=== PATIENT | female | born 1975 | race Caucasian/White ===

== ENCOUNTER → 2018-05-19 | Outpatient (CLI) | payer OTHER ==
[~2018-05-19] MED LIST: LEVO1TBD PO; METH10TA13 PO
[2018-05-19 10:46] LABS: BASOPHILS # (AUTO) 0.02 x10^3/uL (0-0.1); BASOPHILS % (AUTO) 0 % (0-1); EOSINOPHILS # (AUTO) 0.04 x10^3/uL (0-0.4); EOSINOPHILS % (AUTO) 1 % (1-7); LYMPHOCYTES # (AUTO) 1.83 x10^3/uL (1-3.4); LYMPHOCYTES % (AUTO) 22 % (22-44); MD NO; MEAN CORPUSCULAR HEMOGLOBIN 25.9 pg (27.0-34.8); MEAN CORPUSCULAR VOLUME 78.6 fL (80-100); MEAN PLATELET VOLUME 8.6 fL (7.4-10.4); MONOCYTES # (AUTO) 0.37 x10^3/uL (0.2-0.8); MONOCYTES % (AUTO) 4 % (2-9); NEUTROPHILS # (AUTO) 6.25 x10^3/uL (1.8-6.8); NEUTROPHILS % (AUTO) 73 % (42-75); PLATELET COUNT 371 x10^3/uL (130-400); RED BLOOD COUNT 5.62 x10^6/uL (3.82-5.3)
[2018-05-19 10:56] LABS: ALBUMIN 3.8 g/dL (3.4-5.0); CALCIUM 9.1 mg/dL (8.5-10.1); CHLORIDE 108 mmol/L (98-107)
[2018-05-19 11:26] LABS: % IRON SATURATION 10 % (20-55); ALANINE AMINOTRANSFERASE 151 U/L (12-78); ALKALINE PHOSPHATASE 95 U/L (45-117); ANION GAP 6 mmol/L (5-15); BILIRUBIN,TOTAL 0.6 mg/dL (0.2-1.0); CHOL/HDL RATIO 3.9; CHOLESTEROL, TOTAL 150 mg/dL (140-239); CREATININE 0.81 mg/dL (0.55-1.02); HDL CHOL % 25 % (28-40); HDL CHOLESTEROL (DIRECT) 38 mg/dL (40-60); IRON LEVEL 49 mcg/dL (50-170); LDL CHOLESTEROL,CALCULATED 79 mg/dL (54-169); LDL/HDL RATIO 2.1 (0.5-3.0); TOTAL IRON BINDING CAPACITY 511 mcg/dL (250-450); TOTAL PROTEIN 8.6 g/dL (6.4-8.2); TRANSFERRIN 389 mg/dL (200-360); TRIGLYCERIDES 166 mg/dL (50-200); VLDL CHOLESTEROL 33 mg/dL (0-25)
[2018-05-19 11:27] LABS: FOLATE LEVEL > 20.0 ng/mL (3.1-17.5)
== END | disposition home or self-care (01) ==
LOC: STAR 09:16
PROVIDERS: ATTEND Thoracic Surgery (Cardiothoracic Vascular Surgery)
DX: Z01.818 Encounter for other preprocedural examination (principal)
CPT/HCPCS: 36415; 71046; 80053; 80061; 82306; 82607; 82728; 82746; 83540; 83550; 83970; 84134; 84425; 84466; 85025; 93005

== ENCOUNTER 2018-05-25 08:43 | Inpatient (IN) | payer OTHER ==
[~2018-05-25] VITALS: Ht 165.1 cm; Wt 117.0 kg
[~2018-05-25 08:43] MED LIST changes: +BUPIVACAINE/PF-EPI 0.5% 1:200K ONE; +SUGAMMADEX 200 MG/2 ML IVPush ONE
[2018-05-25] MEDS ORDERED: LACTATED RINGERS 1,000 ML IV SCH (09:17)
[2018-05-25] MEDS ORDERED: MIDAZOLAM 1 MG/ML, 2ML ONE (09:26)
[2018-05-25] MEDS ORDERED: FENTANYL PF 250 MCG/5ML ONE (09:26)
[2018-05-25] MEDS ORDERED: SCOPOLAMINE PATCH, 1.5MG PATCH.TD72 TD ONE (09:30)
[2018-05-25] MEDS ORDERED: ACETAMINOPHEN 1,000 MG/100 ML IV IVPB ONE (09:30)
[2018-05-25 09:41] VITALS: BP 135/81
[2018-05-25] MEDS ORDERED: ACETAMINOPHEN 100 ML IVPB ONE (10:00)
[2018-05-25] MEDS ORDERED: PROPOFOL 10 MG/ML, 20ML ONE (11:19)
[2018-05-25] MEDS ORDERED: ONDANSETRON 2MG/ML, 2ML ONE (11:19)
[2018-05-25] MEDS ORDERED: CEFAZOLIN 1,000 MG ONE (11:19)
[2018-05-25] MEDS ORDERED: SUCCINYLCHOLINE 20 MG/ML, 10ML ONE (11:19)
[2018-05-25] MEDS ORDERED: DEXAMETHASONE 4 MG/ML, 1ML ONE (11:19)
[2018-05-25] MEDS ORDERED: ROCURONIUM 10MG/ML,5ML ONE (11:19)
[2018-05-25] MEDS ORDERED: METOCLOPRAMIDE 5 MG/ML, 2ML ONE (11:19)
[2018-05-25] MEDS ORDERED: LABETALOL 5MG/ML, 20ML IV PRN (11:30)
[2018-05-25] MEDS ORDERED: MIDAZOLAM 1 MG/ML, 2ML IV PRN (11:30)
[2018-05-25] MEDS ORDERED: ONDANSETRON 2MG/ML, 2ML IV PRN (11:30)
[2018-05-25] MEDS ORDERED: ALBUTEROL/IPRATROPIUM 2.5MG/0.5MG, 3 ML NPPB PRN (11:30)
[2018-05-25] MEDS ORDERED: MEPERIDINE/PF 25MG/0.5ML IVPush PRN (11:30)
[2018-05-25] MEDS ORDERED: hydrALAzine 20 MG/ML, 1ML IV PRN (11:30)
[2018-05-25] MEDS ORDERED: PROMETHAZINE 25 MG/ML, 1ML IV PRN (11:30)
[2018-05-25] MEDS ORDERED: SUGAMMADEX 200 MG/2 ML IVPush ONE (11:37)
[2018-05-25] MEDS: LACTATED RINGERS 1,000 ML IV SCH ×2 (11:41→18:08)
[2018-05-25] MEDS ORDERED: FENTANYL PF 100 MCG/2ML ONE ×2 (11:43→12:05)
[2018-05-25] MEDS ORDERED: OXYcodone 5 MG/5 ML ORAL.SOL UDC ONE (11:43)
[2018-05-25] MEDS ORDERED: HYDROmorphone 1 MG/ML, 1ML ONE ×2 (11:43→12:05)
[2018-05-25] MEDS: FENTANYL PF 100 MCG/2ML IV PRN ×3 (11:45→12:08)
[2018-05-25] MEDS: HYDROmorphone 2 MG/ML, 1ML IVPush PRN ×5 (11:50→12:22)
[2018-05-25] MEDS ORDERED: DIPHENHYDRAMINE 25 MG CAPSULE PO PRN (12:00)
[2018-05-25] MEDS ORDERED: FAMOTIDINE 20 MG/2 ML IVPush SCH (12:00)
[2018-05-25] MEDS ORDERED: DIPHENHYDRAMINE 50 MG/ML, 1ML IV PRN (12:00)
[2018-05-25] MEDS ORDERED: LORazepam 2 MG/ML, 1ML IV PRN (12:00)
[2018-05-25] MEDS ORDERED: morphine SULFATE 10 MG/ML, 1ML IVPush PRN (12:00)
[2018-05-25] MEDS ORDERED: PHENOL THROAT SPRAY BOTTLE MM PRN (12:00)
[2018-05-25] MEDS ORDERED: ONDANSETRON 2MG/ML, 2ML IVPush PRN (12:00)
[2018-05-25] MEDS ORDERED: ENALAPRILAT 1.25 MG/ML, 2ML IV PRN (12:00)
[2018-05-25] MEDS ORDERED: hydrALAzine 20 MG/ML, 1ML IVPush PRN (12:00)
[2018-05-25 13:49] VITALS: BP 144/85
[2018-05-25] MEDS: HYDROcodone/APAP 7.5-325MG/15ML UDC PO PRN ×4 (14:06→23:15)
[2018-05-25 19:01] VITALS: BP 118/61
[2018-05-25] MEDS ORDERED: FAMOTIDINE 20 MG TABLET ONE (20:56)
[2018-05-25] MEDS ORDERED: FAMOTIDINE 40 MG/5 ML ORAL SUSP PO SCH (21:00)
[2018-05-26 00:27] VITALS: BP 127/75
[2018-05-26] MEDS: LACTATED RINGERS 1,000 ML IV SCH ×2 (01:16→09:09)
[2018-05-26] MEDS: HYDROcodone/APAP 7.5-325MG/15ML UDC PO PRN ×3 (03:14→12:02)
[2018-05-26 03:57] VITALS: BP 116/65
[2018-05-26 05:43] LABS: BASOPHILS # (AUTO) 0.02 x10^3/uL (0-0.1); BASOPHILS % (AUTO) 0 % (0-1); EOSINOPHILS # (AUTO) 0.11 x10^3/uL (0-0.4); EOSINOPHILS % (AUTO) 1 % (1-7); LYMPHOCYTES # (AUTO) 1.74 x10^3/uL (1-3.4); LYMPHOCYTES % (AUTO) 21 % (22-44); MD NO; MEAN CORPUSCULAR HEMOGLOBIN 26.2 pg (27.0-34.8); MEAN CORPUSCULAR HGB CONC 33.4 g/dL (32.4-35.8); MEAN CORPUSCULAR VOLUME 78.4 fL (80-100); MEAN PLATELET VOLUME 9.1 fL (7.4-10.4); MONOCYTES # (AUTO) 0.71 x10^3/uL (0.2-0.8); MONOCYTES % (AUTO) 8 % (2-9); NEUTROPHILS # (AUTO) 5.88 x10^3/uL (1.8-6.8); NEUTROPHILS % (AUTO) 70 % (42-75); PLATELET COUNT 280 x10^3/uL (130-400); RED BLOOD COUNT 4.69 x10^6/uL (3.82-5.3); RED CELL DISTRIBUTION WIDTH 15.7 % (9.6-15.2)
[2018-05-26 05:51] LABS: ALBUMIN 3.1 g/dL (3.4-5.0); ANION GAP 7 mmol/L (5-15); CALCIUM 8.5 mg/dL (8.5-10.1); CHLORIDE 108 mmol/L (98-107)
[2018-05-26 05:52] LABS: CREATININE 0.73 mg/dL (0.55-1.02)
[2018-05-26] MEDS ORDERED: FAMOTIDINE 40 MG/5 ML ORAL SUSP PO SCH (09:00)
[2018-05-26 09:40] VITALS: BP 143/80
[2018-05-26] MEDS ORDERED: KETOROLAC 30 MG/1 ML IVPush PRN (11:00)
[2018-05-26] MEDS ORDERED: HYDR473S45 PO (12:07)
== END 2018-05-26 14:03 | disposition home or self-care (01) | DRG 621 ==
LOC: ORIP 08:43 → 4NOR 12:40 → DCLOUNGE 05-26 13:48
PROVIDERS: ADMIT Thoracic Surgery (Cardiothoracic Vascular Surgery); ATTEND Thoracic Surgery (Cardiothoracic Vascular Surgery)
PROC: 0DB64Z3 Excision of Stomach, Percutaneous Endoscopic Approach, Vertical (ICD-10-PCS; principal; 2018-05-25 11:00)
DX: E66.01 Morbid (severe) obesity due to excess calories (principal); E11.9 Type 2 diabetes mellitus without complications; E78.00 Pure hypercholesterolemia, unspecified; G89.29 Other chronic pain; F32.9 Major depressive disorder, single episode, unspecified; Z68.41 Body mass index [BMI] 40.0-44.9, adult; Z82.3 Family history of stroke; Z82.61 Family history of arthritis; Z82.49 Family history of ischemic heart disease and other diseases of the circulatory system
CPT/HCPCS: 36415; 80048; 82040; 85025; G0378; J0131; J0690; J1100; J1170; J1885; J2250; J2405; J2704; J3010; J0330; J2765; J7120

== ENCOUNTER 2018-06-03 11:38 | Inpatient (IN) | payer OTHER ==
[~2018-06-03] VITALS: Ht 165.1 cm; Wt 105.8 kg
[~2018-06-03 11:38] MED LIST changes: -BUPIVACAINE/PF-EPI 0.5% 1:200K ONE; +HYDR473S45 PO; -SUGAMMADEX 200 MG/2 ML IVPush ONE
--- NOTE | 2018-06-03 12:04 | NUR ---
BREAK RN: CONTACT WITH PT, 42 YR OLD FEMALE HERE WITH C/O "I HAD THE GASTRIC SLEEVE DONE ON THE 05/25/18 AND I HAVENT BEEN ABLE TO TAKE IN MUCH FOOD AND WATER. FEELS LIKE IT GETS STUCK. SAW THE CHEMISTRY TEACHER TODAY AND IS CONCENED THAT I AM DEHYDRATED AND NOT GETTING ENOUGH NUTRIENTS IN. I'M HAVING A HARD TIME WITH BREATHING, I FEEL LIKE I HAVE TO FOCUS ON MY BRETHING. I HAVE PASSED GAS. HAVENT HAD ANY BM SINCE THE PROCEDURE.
--- NOTE | 2018-06-03 12:19 | NUR ---
REPORT TO LAZARA LOTT
[2018-06-03 12:24] LABS: BASOPHILS # (AUTO) 0.05 x10^3/uL (0-0.1); BASOPHILS % (AUTO) 1 % (0-1); EOSINOPHILS # (AUTO) 0.09 x10^3/uL (0-0.4); EOSINOPHILS % (AUTO) 1 % (1-7); LYMPHOCYTES % (AUTO) 23 % (22-44); MD NO; MEAN CORPUSCULAR HEMOGLOBIN 26.7 pg (27.0-34.8); MEAN CORPUSCULAR HGB CONC 33.4 g/dL (32.4-35.8); MEAN CORPUSCULAR VOLUME 79.7 fL (80-100); MEAN PLATELET VOLUME 9.2 fL (7.4-10.4); MONOCYTES # (AUTO) 0.44 x10^3/uL (0.2-0.8); MONOCYTES % (AUTO) 6 % (2-9); NEUTROPHILS # (AUTO) 5.57 x10^3/uL (1.8-6.8); NEUTROPHILS % (AUTO) 70 % (42-75); PLATELET COUNT 315 x10^3/uL (130-400); RED BLOOD COUNT 5.84 x10^6/uL (3.82-5.3); RED CELL DISTRIBUTION WIDTH 16.2 % (9.6-15.2)
[2018-06-03] MEDS ORDERED: SODIUM CHLORIDE 0.9% 1,000ML IVBOLUS ONE ×2 (12:30→14:00)
--- NOTE | 2018-06-03 12:30 | NUR ---
PT TAKEN TO RADIOLOGY.
[2018-06-03 12:34] LABS: ALANINE AMINOTRANSFERASE 928 U/L (12-78); ALBUMIN 3.8 g/dL (3.4-5.0); ANION GAP 11 mmol/L (5-15); CALCIUM 9.1 mg/dL (8.5-10.1); CHLORIDE 105 mmol/L (98-107)
[2018-06-03 12:39] LABS: ALKALINE PHOSPHATASE 162 U/L (45-117); BILIRUBIN,TOTAL 2.2 mg/dL (0.2-1.0); CREATININE 0.93 mg/dL (0.55-1.02); TOTAL PROTEIN 8.5 g/dL (6.4-8.2)
[2018-06-03 13:05] LABS: CULTURE INDICATED? YES; MICROSCOPIC INDICATED
--- NOTE | 2018-06-03 13:28 | NUR ---
PT TAKEN TO CT.
--- NOTE | 2018-06-03 13:44 | NUR ---
PT IS RESTING IN BED, TALKING WITH FAMILY, RESPIRATIONS EQUAL AND NON LABORED. NAD. PT IS CONNECTED TO THE MONITOR. CALL LIGHT WITHIN REACH.
[2018-06-03] MEDS ORDERED: OMNIPAQUE 350 MG/ML, 100ML BOTTLE ONE (13:46)
[2018-06-03] MEDS ORDERED: CEFTRIAXONE PMX 1GM/50ML 50 ML ONE (13:52)
[2018-06-03] MEDS ORDERED: CEFTRIAXONE PMX 1GM/50ML 50 ML IVPB ONE (14:00)
--- NOTE | 2018-06-03 14:41 | NUR ---
PT IS RESTING IN BED, TALKING WITH FAMILY, RESPIRATIONS EQUAL AND NON LABORED. NAD. PT IS CONNECTED TO THE MONITOR. CALL LIGHT WITHIN REACH.
[2018-06-03] MEDS ORDERED: OMEP-110 PO (14:47)
--- NOTE | 2018-06-03 14:51 | NUR ---
PT TAKEN TO MRI.
--- NOTE | 2018-06-03 15:53 | NUR ---
PT IS RESTING IN BED, TALKING WITH FAMILY, RESPIRATIONS EQUAL AND NON LABORED. NAD. PT IS CONNECTED TO THE MONITOR. CALL LIGHT WITHIN REACH.
--- NOTE | 2018-06-03 16:25 | NUR ---
PT GIVEN WATER TO DRINK FOR PO CHALLENGE.
--- NOTE | 2018-06-03 16:36 | NUR ---
PT IS DRINKING WATER AND KEEPING IT DOWN. SHE STATED THAT IT DOES NOT FEEL LIKE IT IS GETTING STUCK ANY MORE.
--- NOTE | 2018-06-03 17:24 | NUR ---
REPORT GIVEN TO SALMA LOTT.
[2018-06-03] MEDS ORDERED: POLYETHYLENE GLYCOL 17 GM PACKET PO PRN (17:30)
[2018-06-03] MEDS ORDERED: ONDANSETRON ODT 4 MG PO PRN (17:30)
[2018-06-03] MEDS ORDERED: hydrALAzine 20 MG/ML, 1ML IVPush PRN (17:30)
[2018-06-03] MEDS ORDERED: METOCLOPRAMIDE 5 MG/ML, 2ML IVPush PRN (17:30)
[2018-06-03] MEDS ORDERED: LABETALOL 5MG/ML, 20ML IVPush PRN (17:30)
[2018-06-03] MEDS ORDERED: ONDANSETRON 2MG/ML, 2ML IVPush PRN (17:30)
[2018-06-03] MEDS ORDERED: BISACODYL 10 MG SUPP PR PRN (17:30)
[2018-06-03] MEDS: SODIUM CHLORIDE 0.9% 1,000 ML IV SCH ×2 (18:02→23:23)
[2018-06-03] MEDS: PANTOPRAZOLE 40 MG IV IVPush SCH (18:02)
[2018-06-03] MEDS: ENOXAPARIN 40 MG/0.4 ML SQ SCH (18:03)
[2018-06-03] MEDS ORDERED: DIPHENHYDRAMINE 50 MG CAPSULE PO PRN (21:00)
[2018-06-03 21:03] VITALS: BP 129/66
[2018-06-03] MEDS: DOCUSATE 50 MG/5 ML, 10ML UDC PO SCH (21:11)
[2018-06-04 01:15] VITALS: BP 121/81
[2018-06-04] MEDS: SODIUM CHLORIDE 0.9% 1,000 ML IV SCH (04:02)
[2018-06-04 05:23] LABS: ALBUMIN 2.8 g/dL (3.4-5.0); ANION GAP 10 mmol/L (5-15); CALCIUM 7.7 mg/dL (8.5-10.1); CHLORIDE 113 mmol/L (98-107)
[2018-06-04 05:30] LABS: BASOPHILS # (AUTO) 0.02 x10^3/uL (0-0.1); BASOPHILS % (AUTO) 0 % (0-1); EOSINOPHILS # (AUTO) 0.08 x10^3/uL (0-0.4); EOSINOPHILS % (AUTO) 2 % (1-7); LYMPHOCYTES # (AUTO) 1.83 x10^3/uL (1-3.4); LYMPHOCYTES % (AUTO) 42 % (22-44); MEAN CORPUSCULAR HEMOGLOBIN 26.8 pg (27.0-34.8); MEAN CORPUSCULAR HGB CONC 33.7 g/dL (32.4-35.8); MEAN CORPUSCULAR VOLUME 79.6 fL (80-100); MEAN PLATELET VOLUME 9.6 fL (7.4-10.4); MONOCYTES # (AUTO) 0.36 x10^3/uL (0.2-0.8); MONOCYTES % (AUTO) 8 % (2-9); NEUTROPHILS # (AUTO) 2.06 x10^3/uL (1.8-6.8); NEUTROPHILS % (AUTO) 47 % (42-75); PLATELET COUNT 247 x10^3/uL (130-400); RED BLOOD COUNT 4.47 x10^6/uL (3.82-5.3)
[2018-06-04 05:31] LABS: ALANINE AMINOTRANSFERASE 687 U/L (12-78); ALKALINE PHOSPHATASE 109 U/L (45-117); BILIRUBIN,TOTAL 1.4 mg/dL (0.2-1.0); CREATININE 0.75 mg/dL (0.55-1.02); TOTAL PROTEIN 6.2 g/dL (6.4-8.2)
[2018-06-04 06:07] LABS: MD NO
[2018-06-04 07:26] VITALS: BP 125/77
[2018-06-04] MEDS: DOCUSATE 50 MG/5 ML, 10ML UDC PO SCH ×2 (07:59→20:10)
[2018-06-04] MEDS: D5%-0.9% NACL 1,000 ML IV SCH ×3 (08:00→23:49)
[2018-06-04] MEDS: PANTOPRAZOLE 40 MG IV IVPush SCH ×2 (08:00→20:45)
[2018-06-04 08:21] LABS: THYROID STIMULATING HORMONE 0.972 mIU/L (0.358-3.740)
--- NOTE | 2018-06-04 12:03 | NUR ---
REC: regular diet with thin liquids Addendum: 06/04/18 at 1203 by Shirin DIA Amended: Links added.
[2018-06-04 12:58] VITALS: BP 131/76
[2018-06-04] MEDS: CEFTRIAXONE PMX 1GM/50ML 50 ML IV SCH (14:30)
[2018-06-04] MEDS: ENOXAPARIN 40 MG/0.4 ML SQ SCH (18:07)
[2018-06-04 19:20] VITALS: BP 128/77
[2018-06-05 01:23] VITALS: BP 120/70
[2018-06-05 05:10] LABS: BASOPHILS # (AUTO) 0.02 x10^3/uL (0-0.1); BASOPHILS % (AUTO) 1 % (0-1); EOSINOPHILS # (AUTO) 0.07 x10^3/uL (0-0.4); EOSINOPHILS % (AUTO) 2 % (1-7); LYMPHOCYTES # (AUTO) 1.09 x10^3/uL (1-3.4); LYMPHOCYTES % (AUTO) 30 % (22-44); MD NO; MEAN CORPUSCULAR HEMOGLOBIN 26.7 pg (27.0-34.8); MEAN CORPUSCULAR HGB CONC 33.6 g/dL (32.4-35.8); MEAN CORPUSCULAR VOLUME 79.4 fL (80-100); MEAN PLATELET VOLUME 9.3 fL (7.4-10.4); MONOCYTES # (AUTO) 0.36 x10^3/uL (0.2-0.8); MONOCYTES % (AUTO) 10 % (2-9); NEUTROPHILS # (AUTO) 2.13 x10^3/uL (1.8-6.8); NEUTROPHILS % (AUTO) 58 % (42-75); PLATELET COUNT 200 x10^3/uL (130-400); RED BLOOD COUNT 4.29 x10^6/uL (3.82-5.3); RED CELL DISTRIBUTION WIDTH 15.6 % (9.6-15.2)
[2018-06-05 05:23] LABS: CHLORIDE 114 mmol/L (98-107)
[2018-06-05 05:31] LABS: ALANINE AMINOTRANSFERASE 552 U/L (12-78); ALBUMIN 2.6 g/dL (3.4-5.0); ALKALINE PHOSPHATASE 104 U/L (45-117); ANION GAP 9 mmol/L (5-15); BILIRUBIN,TOTAL 0.9 mg/dL (0.2-1.0); CALCIUM 7.6 mg/dL (8.5-10.1); CREATININE 0.79 mg/dL (0.55-1.02); TOTAL PROTEIN 5.9 g/dL (6.4-8.2)
[2018-06-05] MEDS: D5%-0.9% NACL 1,000 ML IV SCH ×2 (06:42→13:25)
[2018-06-05 07:09] VITALS: BP 112/66
[2018-06-05] MEDS: PANTOPRAZOLE 40 MG IV IVPush SCH (08:34)
[2018-06-05] MEDS: DOCUSATE 50 MG/5 ML, 10ML UDC PO SCH (08:34)
[2018-06-05] MEDS ORDERED: CEFD300C37 PO (09:26)
[2018-06-05 13:09] VITALS: BP 143/81
[2018-06-05] MEDS: CEFTRIAXONE PMX 1GM/50ML 50 ML IV SCH (14:00)
== END 2018-06-05 14:25 | disposition home or self-care (01) | DRG 690 ==
LOC: ED 13:31 → EDIP 16:49 → 3NE 17:37
PROVIDERS: ADMIT Hospitalist; ATTEND Hospitalist
DX: N39.0 Urinary tract infection, site not specified (principal); R13.10 Dysphagia, unspecified; E11.9 Type 2 diabetes mellitus without complications; E86.0 Dehydration; G47.419 Narcolepsy without cataplexy; E66.01 Morbid (severe) obesity due to excess calories; R74.8 Abnormal levels of other serum enzymes; E80.6 Other disorders of bilirubin metabolism; R74.0 Nonspecific elevation of levels of transaminase and lactic acid dehydrogenase [LDH]; Z68.38 Body mass index [BMI] 38.0-38.9, adult
CPT/HCPCS: 36415; J7042; 71046; 74177; 74181; 80053; 81001; 82728; 83540; 83550; 83690; 83735; 84100; 84443; 84466; 84702; 85025; 87086; 93005; G0378; J0696; J1650; Q9967; C9113; J7030